=== PATIENT | male | born 1960 | race Caucasian/White ===

== ENCOUNTER → 2024-09-10 | Outpatient (CLI) | payer MEDICARE, SELFPAY ==
--- NOTE | 2024-09-10 15:43 | XR_ITS ---
Examination: Right knee 4 views DATE: AP oblique lateral axial right knee 4 views Exam date and time: September 10 thousand 25 1601 hours INDICATIONS: Right knee pain beginning one month ago. FINDINGS: Moderate to advanced tricompartment osteoarthritis, most severe medial patellofemoral joints Moderate knee effusion No fracture IMPRESSION: Moderate to advanced tricompartment osteoarthritis
== END | disposition home or self-care (01) ==
PROVIDERS: PCP Family Medicine; Referring Provider Internal Medicine; Visit Provider Internal Medicine
DX: M17.11 Unilateral primary osteoarthritis, right knee (principal)
CPT/HCPCS: 73564

== ENCOUNTER → 2024-09-20 | Outpatient (BNVA) | payer MEDICARE, SELFPAY | END | disposition home or self-care (01) | PROVIDERS: PCP Family Medicine; Referring Provider Family Medicine; Visit Provider Urology | DX: N40.1 Benign prostatic hyperplasia with lower urinary tract symptoms (principal); R39.12 Poor urinary stream | CPT/HCPCS: 51741; 51798 ==

== ENCOUNTER → 2025-01-07 | Outpatient (BNVA) | payer MEDICARE, SELFPAY | END | disposition home or self-care (01) | PROVIDERS: PCP Family Medicine; Referring Provider Family Medicine; Visit Provider Urology | DX: N40.1 Benign prostatic hyperplasia with lower urinary tract symptoms (principal); N13.8 Other obstructive and reflux uropathy; R79.89 Other specified abnormal findings of blood chemistry; R97.20 Elevated prostate specific antigen [PSA]; I10 Essential (primary) hypertension; R73.03 Prediabetes; E66.9 Obesity, unspecified; Z68.30 Body mass index [BMI] 30.0-30.9, adult | CPT/HCPCS: 81003; 99212; G0463 ==

== ENCOUNTER → 2025-03-15 | Outpatient (BNVA) | payer MEDICARE, SELFPAY | END | disposition home or self-care (01) | PROVIDERS: PCP Family Medicine; Referring Provider Family Medicine; Visit Provider Physician Assistant | DX: R97.20 Elevated prostate specific antigen [PSA] (principal); M25.852 Other specified joint disorders, left hip | CPT/HCPCS: 99212; G0463 ==

== ENCOUNTER → 2025-04-18 | Outpatient (BNVA) | payer MEDICARE, SELFPAY | END | disposition home or self-care (01) | PROVIDERS: PCP Family Medicine; Referring Provider Family Medicine; Visit Provider Urology | DX: N40.1 Benign prostatic hyperplasia with lower urinary tract symptoms (principal); N13.8 Other obstructive and reflux uropathy; C61 Malignant neoplasm of prostate; E66.9 Obesity, unspecified; Z68.29 Body mass index [BMI] 29.0-29.9, adult | CPT/HCPCS: 81003; 99212; G0463 ==

== ENCOUNTER → 2025-05-16 | Outpatient (CLI) | payer MEDICARE, SELFPAY ==
--- NOTE | 2025-05-16 13:00 | XR_ITS ---
Examination: Bone scan whole body, radioisotope Date and time of exam: May 16, 2025 0856 hours INDICATIONS: Diagnosis malignant neoplasm prostate, mass in the left hip history Technique: Study has been performed with intravenous administration of 23.4 mci 99M technetium MDP. Anterior, posterior whole body images are obtained. Images have been obtained including the lower extremities. Findings: Mild increased uptake involving the manubrium and the medial aspect of the left clavicle Mild uptake at L5 and S1 of the posterior view Asymmetric uptake about the knees IMPRESSION: Positive bone scan but nonspecific Recommend plain films sternum, 5 view lumbar spine series follow-up
== END | disposition home or self-care (01) ==
LOC: SNUC 08:32
PROVIDERS: PCP Internal Medicine; Referring Provider Internal Medicine; Visit Provider Internal Medicine
DX: R93.7 Abnormal findings on diagnostic imaging of other parts of musculoskeletal system (principal); C61 Malignant neoplasm of prostate
CPT/HCPCS: 78306; A9503

== ENCOUNTER → 2025-05-28 | Outpatient (BNVA) | payer MEDICARE, SELFPAY | END | disposition home or self-care (01) | PROVIDERS: PCP Family Medicine; Referring Provider Family Medicine; Visit Provider Urology | DX: N32.89 Other specified disorders of bladder (principal); N40.1 Benign prostatic hyperplasia with lower urinary tract symptoms; N13.8 Other obstructive and reflux uropathy | CPT/HCPCS: 52000; 81003; 96372; A4217; A4649; C1894; J1580; A9270 ==

== ENCOUNTER → 2025-07-10 | Outpatient (CLI) | payer MEDICARE, SELFPAY ==
--- NOTE | 2025-07-10 10:24 | XR_ITS ---
EXAMINATION: PA lateral chest 2 views TECHNIQUE: Upright PA and lateral chest 2 views Date and time: July 10, 2025, 1035 hours INDICATIONS: Preop FINDINGS: Normal heart size Lungs are clear. Mild hyperexpansion. Moderate osteopenia IMPRESSION: Moderate hyperexpansion No pneumonia or pulmonary edema
[2025-07-10 11:11] LABS: Basophils # (Auto) 0.1 Thou/mm3 (0.0-0.2); Basophils % (Auto) 1 % (0-2.5); Eosinophils # (Auto) 0.1 Thou/mm3 (0.0-0.5); Eosinophils % (Auto) 2 % (0-10); Hematocrit 40.2 % (41.0-53.0); Hemoglobin 13.8 g/dL (13.5-16.0); Immature Granulocytes Auto 0.04 Thou/mm3 (0.00-0.00); Lymphocytes # (Auto) 1.8 Thou/mm3 (1.0-4.8); Lymphocytes % (Auto) 30 % (10-50); Mean Corpuscular HGB Conc 34.3 g/dl (31.0-37.0); Mean Corpuscular Hemoglobin 31.1 pg (25.0-35.0); Mean Corpuscular Volume 91 fL (80-100); Monocytes # (Auto) 0.6 Thou/mm3 (0.0-0.8); Monocytes % (Auto) 11 % (0-12); Neutrophils # (Auto) 3.3 Thou/mm3 (1.8-7.7); Neutrophils % (Auto) 55 % (37-80); Nucleated Red Blood Cell # 0.00 Thou/mm3 (0.00-0.00); Nucleated Red Blood Cell % 0 /100 WBC (0); Platelet Count 189 Thou/mm3 (140-440); RDW Standard Deviation 40.7 fL (35.1-43.9); Red Blood Count 4.44 Miln/mm3 (4.50-5.90); White Blood Count 6.0 Thou/mm3 (3.8-10.6)
[2025-07-10 11:22] LABS: INR 1.0 (0.9-1.3); Partial Thromboplastin Time 29.4 Seconds (22.0-36.0); Prothrombin Time 10.3 Seconds (9.0-12.2)
[2025-07-10 11:31] LABS: Alanine Aminotransferase 27 U/L (10-49); Albumin, Serum 4.4 gm/dL (3.4-4.8); Albumin/Globulin Ratio 2.0 (1.2-2.2); Alkaline Phosphatase 58 U/L (46-116); Anion Gap 9 (7-16); Aspartate Amino Transferase 25 U/L (0-34); BUN/Creatinine Ratio 15 Ratio (12-20); Bilirubin,Total 0.9 mg/dL (0.3-1.2); Blood Urea Nitrogen 15 mg/dL (9-23); Calcium 9.5 mg/dL (8.3-10.6); Calcium (Corrected) 9.5 mg/dL (8.5-10.1); Carbon Dioxide 25.0 mMol/L (20.0-31.0); Chloride 108 mMol/L (98-107); Creatinine (Component) 1.0 mg/dL (0.6-1.3); Globulin 2.2 gm/dL (2.3-3.5); Glucose 105 mg/dL (74-106); Osmolality,Calculated 283 (275-295); Potassium 4.2 mMol/L (3.4-5.1); Sodium 142 mMol/L (136-145); Total Protein 6.6 gm/dL (5.7-8.2); eGFR > 60 See Note
== END | disposition home or self-care (01) ==
LOC: CDIM 09:53 → COPL 10:42
PROVIDERS: PCP Internal Medicine; Referring Provider Internal Medicine; Visit Provider Radiology Diagnostic Radiology
DX: J98.4 Other disorders of lung (principal); Z01.818 Encounter for other preprocedural examination; I10 Essential (primary) hypertension; C61 Malignant neoplasm of prostate
CPT/HCPCS: 36415; 71046; 80053; 85025; 85610; 85730

== ENCOUNTER 2025-07-19 19:13 | Emergency (ER) | payer MEDICARE, SELFPAY ==
[2025-07-19 20:11] VITALS: BP 125/72; PULSE 97; RESP 16; TEMP 37.2; O2SAT 98
[2025-07-19 20:42] LABS: Collection Type, Urine Clean Catch
[2025-07-19 20:48] LABS: Amorphous Crystals,Urine Present (Absent); Bacteria,Urine Rare; Bilirubin,Urine Negative (Negative); Blood,Urine 3+ (Negative); Clarity,Urine Turbid (Clear/Hazy); Color,Urine Yellow (Lt Yel-Yel); Culture Indicated,Urine Yes; Glucose, Urine Negative (Negative); Ketones,Urine Negative (Negative); Leukocyte Esterase,Urine Positive (Negative); Nitrite,Urine Negative (Negative); PH,Urine 6.0 (5.0-7.0); Protein,Urine 2+ (Neg - Trace); RBC,Urine 648 /hpf (0-3); Specific Gravity,Urine 1.024 (1.001-1.035); Squamous Epithelial Cell,Urine < 1 /hpf (0-5); Urobilinogen,Urine Negative mg/dL (0.0-1.0); WBC,Urine 12 /hpf (0-5)
--- NOTE | 2025-07-19 20:53 | XR_ITS ---
Examination: CT abdomen and pelvis without contrast. Coronal 3-D reconstructions. Sagittal 2-D reconstructions. Date and time of exam: July 19, 2025, 2102 hours INDICATIONS: Testicular swelling and abdominal pain today, prostatectomy 1 week ago CTDI: vol (mGy): 9.65 DLP: (mGycm): 538 Technique: Axial images of the abdomen have been obtained, 3 mm slice thickness Intravenous contrast material has not been administered. Low dose protocols were performed. One or more of the following dose reduction techniques were used; automated exposure control, adjustment of the mA and/or KV according to patient size, use of iterative reconstruction technique. Findings: Liver is mildly irregular in contour, minimal fluid subcapsular to the liver No gallstones Presumed postoperative change with air density in the anterior and left lateral abdominal wall and flank as well as the right flank Pneumoperitoneum Parapelvic renal cysts No ureteral calculi Normal appendix Mild increased density in the peritoneal fat in the pelvis Urinary Turk catheter in the bladder No prostate tissue No pelvic hematoma Air in the soft tissue also anterior lower pelvis Air in the scrotal sac on the right side and scrotal edema IMPRESSION: Postoperative changes involving the abdominal wall and flank as above Pneumoperitoneum, presumably postoperative Postoperative change in the peritoneal fat in the pelvis but no pelvic hematoma or abscess Air in the scrotal sac on the right side with scrotal edema
--- NOTE | 2025-07-19 20:54 | EDRME_ITS ---
Rapid Medical Screening Exam RME Arrival date/time: 07/19/25 19:13 64M with history of HTN and prostate cancer (prostate removed 1 week ago at [facility]) presents to ED with 1 day of bilateral testicular swelling and pain. Patient received ABX during surgery recovery while inpatient, but no outpatient ABX. Patient has post-op exam on Tuesday. Chief Complaint: Urogenital-Male Time Seen by Provider: 07/19/25 20:57 Vital signs: Vital Signs Temperature 98.9 F 07/19/25 20:11 Pulse Rate 97 07/19/25 20:11 Respiratory Rate 16 07/19/25 20:11 Blood Pressure 125/72 07/19/25 20:11 Pulse Oximetry (%) 98 07/19/25 20:11 Oxygen Delivery Method Room Air 07/19/25 20:11 Exam: Testicular swelling. Turk is draining. Clinical Impression: Postop complication/swelling vs epididymitis vs hematoma vs torsion vs testicular pain
[2025-07-19 23:08] VITALS: BP 119/64; PULSE 83; RESP 16; TEMP 37.2; O2SAT 98
--- NOTE | 2025-07-19 23:21 | EDNOTE_ITS ---
ED Male Genitalurinary RME/HPI General Chief complaint: Urogenital-Male Stated complaint: TESTICLE SWELLING Time Seen by Provider: 07/19/25 20:57 Arrival date/time: 07/19/25 19:13 RME / HPI RME / HPI Narrative: 07/19/25 19:13 64M with history of HTN and prostate cancer (prostate removed 1 week ago at [facility]) presents to ED with 1 day of bilateral testicular swelling and pain. Patient received ABX during surgery recovery while inpatient, but no outpatient ABX. Patient has post-op exam on Tuesday. Dr. Al?s Main ED Evaluation: 64 y/o male with Hx of Prostate CA and recent radical prostatectomy presents to ED c/o scrotal swelling x 1 day and a burning sensation when catheter drains urine x 4 days. Pt had his prostatectomy performed 7 days ago (07/12/2025) by Dr. Alegre at [facility]. Dr. Rai, patient's urologist, was contacted and recommended OTC AZO which the states helped somewhat. Patient was draining approximately 300-400 cc per 2 hours, but has refrained from hydrating since realizing that the burning sensation occurs when urine is produced and drained. Denies testicular and abdominal pain. He is concerned about the scrotal swelling. No fevers, shakes, chills, sweats. No history of diabetes. No other medical complaints Exam: Testicular swelling. Daniels is draining. Impression: Postop complication/swelling vs epididymitis vs hematoma vs torsion vs testicular pain Related Data Home Medications ?Medication ?Instructions ?Recorded ?Confirmed lisinopril 10 mg tablet 10 mg PO QDAY 04/12/2405/28 tamsulosin 0.4 mg capsule 0.4 mg PO QHS 04/12/2405/28 cyclobenzaprine 5 mg tablet 5 mg PO QHS 05/28/2505/28 meloxicam 7.5 mg tablet 7.5 mg PO QDAY 05/28/2505/07 Review of Systems Review of Systems Systems Reviewed: All systems reviewed, normal except as documented Past Medical History Past Medical History GENITOURINARY: Positive Prostate Cancer OTHER HISTORY: Positive Prostate Cancer ED Exam Narrative Physical exam: GENERAL APPEARANCE: alert and oriented x 4, well-developed, well-nourished, no acute distress VITALS: All vitals were reviewed and the pulse ox is 98% on room air, which is normal according to my interpretation. HEENT: Normocephalic, atraumatic; pupils equal, round, reactive to light; EOMI; mucous membranes pink, moist; oropharynx clear NECK: Supple LUNGS: CTABL; no wheezes, no rales, no rhonchi HEART: Regular rate, regular rhythm; normal S1, S2; no murmurs ABDOMEN: Multiple anterior abdominal wall surgical scars, well-healing, no redness, drainage, or swelling. MALE : General scrotal swelling, no TTP. Testes normal, draining indwelling daniels catheter. BACK: no CVA tenderness EXTREMITIES: atraumatic; no edema NEUROLOGIC: awake; alert and oriented x4; cranial nerves II-XII grossly intact; no focal sensory or motor deficits PSYCHIATRIC: appropriate mood and affect SKIN: warm, dry, normal color; no rashes Course Quality Measures none Orders Category Date Time Status CT Screening NOW Care 07/19/25 23:33 Completed IV [Insert IV] NOW Care 07/20/25 00:[address] abdomen pelvis wo con Stat Exams 07/19/25 20:53 Completed Blood Culture (Lab) Stat Lab 07/19/25 23:45 Received CBC Stat Lab 07/19/25 23:45 Completed CMP [Comprehensive Metabolic Panel] Stat Lab 07/19/25 23:45 Completed Procalcitonin Stat Lab 07/19/25 23:45 Completed Sed Rate (ESR) Stat Lab 07/19/25 23:45 Completed Urinalysis, C/S if Indicated Stat Lab 07/19/25 19:32 Completed Urine Culture Stat Lab 07/19/25 19:32 Received Phenazopyridine HCl [Pyridium] Med 07/20/25 00:58 Discontinued 100 mg PO X1 ONE Vital Signs Vital signs: Vital Signs Temperature 98.9 F 07/19/25 20:11 Pulse Rate 97 07/19/25 20:11 Respiratory Rate 16 07/19/25 20:11 Blood Pressure 125/72 07/19/25 20:11 Pulse Oximetry (%) 98 07/19/25 20:11 Oxygen Delivery Method Room Air 07/19/25 20:11 Urogenital - Male MDM Narrative MDM Narrative:: 64 y/o male with Hx of Prostate CA and recent radical prostatectomy presents to ED c/o scrotal swelling x 1 day and a burning sensation when catheter drains urine x 4 days. Pt had his prostatectomy performed 7 days ago (07/12/2025) by Dr. Alegre at [facility]. Dr. Rai, patient's urologist, was contacted and recommended OTC AZO which the states helped somewhat. Patient was draining approximately 300-400 cc per 2 hours, but has refrained from hydrating since realizing that the burning sensation occurs when urine is produced and drained. Denies testicular and abdominal pain. He is concerned about the scrotal swelling. No fevers, shakes, chills, sweats. No history of diabetes. No other medical complaints. Patient's workup shows hematuria but no UTI. The CT showed post operative changes as well as some free scrotal air and some scrotal wall thickening. I called and spoke with the urologist who is on-call for the patient's surgeon (Dr. English). He and I discussed the patient's case in detail. He said that scrotal free air is commonly seen in patients who have had prostatectomy. He states this does not indicate necessity of further workup. Patient has no leukocytosis. I find no evidence of infection. On exam the patient had no scrotal erythema or tenderness to palpation. There is no testicular tenderness to palpation. I spoke with the patient and his and they are happy to be discharged and they will call their surgeon for a follow-up appointment. I gave them strict return instructions and they voiced understanding and agreement Scribe Attestation: I, Gianna Gregorio, am scribing for and in the presence of Dr. Al. Provider Notation: Although this document has been carefully reviewed, there may still be some phonetic and other typographical errors. These errors are purely grammatical due to imperfections in the software program and should not be construed in any way to compromise the substance of the patient's medical care during this visit. Patient data External records reviewed:: [facility] previous records (No prior ED records available for review) Clinical information provided by:: patient and spouse () Social determinants that could affect healthcare access:: none Patient has the following chronic illnesses:: Prostate CA How is presenting disease/condition affected by chronic disease/condition?: exacerbated by Evaluation data The following diagnostics were reviewed and interpreted by me:: lab results and radiology exam(s) Lab and/or radiology exams considered but not ordered:: None Interpretation Summary: RADIOLOGY Abdomen/Pelvis CT: Findings: Liver is mildly irregular in contour, minimal fluid subcapsular to the liver No gallstones Presumed postoperative change with air density in the anterior and left lateral abdominal wall and flank as well as the right flank Pneumoperitoneum Parapelvic renal cysts No ureteral calculi Normal appendix Mild increased density in the peritoneal fat in the pelvis Urinary Daniels catheter in the bladder No prostate tissue No pelvic hematoma Air in the soft tissue also anterior lower pelvis Air in the scrotal sac on the right side and scrotal edema IMPRESSION: Postoperative changes involving the abdominal wall and flank as above Pneumoperitoneum, presumably postoperative Postoperative change in the peritoneal fat in the pelvis but no pelvic hematoma or abscess Air in the scrotal sac on the right side with scrotal edema Medications / Prescriptions Medications or Prescriptions considered but not ordered:: None Medication administrations:: Medication Administration History Discontinued Medications Phenazopyridine HCl (Phenazopyridine Hcl 100 Mg Tablet) 100 mg PO X1 ONE Stop: 07/20/25 00:59 See above if any Consultations Consultation(s) initiated? (list below): Yes Consultation #1 (Physician, Specialty, Details): Dr. English from [facility] made aware of the patient?s HPI, PMHx, lab and/or radiology results. Discussed treatment plan. Will follow recommendations. Time: 00:49 Diagnosis Urogenital Male Differential Diagnosis: urethritis, epididymitis, acute retention of urine, inguinal hernia and other (renal calculi) Most likely diagnosis given after review of the tests above:: See clinical impression below. Admission Indicated Admission indicated?: not indicated Explain why admission is indicated or not indicated:: Patient has no emergent abnormalities in their studies and can be managed on an outpatient basis. Admission Request Was there a request for admission?: No Disposition Plan Disposition Plan: Discharge Discharge Attestation Discharge Attestation: The patient and all family members were given an opportunity to ask questions and understood the discharge instructions. Discharge instructions specifically effects, indications for sooner follow up or return to the emergency department, and the expected course of current diagnosis. Patient condition: Stable Discharge Plan Plan Patient Disposition: HOME (Self Care) Discharge Disposition comment: Stable for discharge home Patient condition on transfer: Stable Prescriptions/Referrals Prescriptions/Med Rec: No Action meloxicam 7.5 mg tablet 7.5 mg PO QDAY cyclobenzaprine 5 mg tablet 5 mg PO QHS tamsulosin 0.4 mg capsule 0.4 mg PO QHS lisinopril 10 mg tablet 10 mg PO QDAY Referrals: [facility] [Provider Group] - In 1 week Problem List Clinical Impression: Postoperative abdominal pain, Hematuria Patient/Caregiver Discharge Instructions Discharge Activity: activity as tolerated Diet Instructions: No restrictions Education Materials: Complementary Care for Pain, Managing Post-Op Pain at Home Additional Instructions: Today you were seen in the emergency department for postoperative pain. The CT scan shows that you have normal changes after surgery such as the 1 you pad. The reason that your scrotum became more swollen is that there is now air in the scrotum. This is not necessarily a problem and there does not seem to be any any evidence of infection or any other postoperative complications at this point You should call your urologist and make a follow-up appointment for sometime in the next week or so. If you worsen in any way you should return to the ER right away and we will help you. Otherwise you should follow-up with your primary care doctor within the next several days Print Language: Upper Sorbian Stand Alone Forms: Mamie Award Info., Patient Portal Info Letter
[2025-07-19 23:58] LABS: Sed Rate (ESR) 30 mm/hr (0-20)
[2025-07-20 00:20] LABS: Basophils # (Auto) 0.1 Thou/mm3 (0.0-0.2); Basophils % (Auto) 1 % (0-2.5); Eosinophils # (Auto) 0.3 Thou/mm3 (0.0-0.5); Eosinophils % (Auto) 4 % (0-10); Hematocrit 36.1 % (41.0-53.0); Hemoglobin 12.1 g/dL (13.5-16.0); Immature Granulocytes Auto 0.12 Thou/mm3 (0.00-0.00); Lymphocytes # (Auto) 1.7 Thou/mm3 (1.0-4.8); Lymphocytes % (Auto) 19 % (10-50); Mean Corpuscular HGB Conc 33.5 g/dl (31.0-37.0); Mean Corpuscular Hemoglobin 31.4 pg (25.0-35.0); Mean Corpuscular Volume 94 fL (80-100); Monocytes # (Auto) 0.8 Thou/mm3 (0.0-0.8); Monocytes % (Auto) 9 % (0-12); Neutrophils # (Auto) 6.0 Thou/mm3 (1.8-7.7); Neutrophils % (Auto) 67 % (37-80); Nucleated Red Blood Cell # 0.00 Thou/mm3 (0.00-0.00); Nucleated Red Blood Cell % 0 /100 WBC (0); Platelet Count 214 Thou/mm3 (140-440); RDW Standard Deviation 43.8 fL (35.1-43.9); Red Blood Count 3.85 Miln/mm3 (4.50-5.90); White Blood Count 8.9 Thou/mm3 (3.8-10.6)
[2025-07-20 00:30] VITALS: BMI 34.0
[2025-07-20 00:33] LABS: Alanine Aminotransferase 25 U/L (10-49); Albumin, Serum 4.0 gm/dL (3.4-4.8); Albumin/Globulin Ratio 1.7 (1.2-2.2); Alkaline Phosphatase 61 U/L (46-116); Anion Gap 7 (7-16); Aspartate Amino Transferase 20 U/L (0-34); BUN/Creatinine Ratio 13 Ratio (12-20); Bilirubin,Total 0.7 mg/dL (0.3-1.2); Blood Urea Nitrogen 13 mg/dL (9-23); Calcium 9.2 mg/dL (8.3-10.6); Calcium (Corrected) 9.2 mg/dL (8.5-10.1); Carbon Dioxide 26.0 mMol/L (20.0-31.0); Chloride 106 mMol/L (98-107); Creatinine (Component) 1.0 mg/dL (0.6-1.3); Estimated Creatinine Clearance 86.5 mL/min (>60); Globulin 2.4 gm/dL (2.3-3.5); Glucose 102 mg/dL (74-106); Osmolality,Calculated 277 (275-295); Potassium 4.4 mMol/L (3.4-5.1); Procalcitonin 0.08 ng/ml (0.0-0.49); Sodium 139 mMol/L (136-145); Total Protein 6.4 gm/dL (5.7-8.2); eGFR > 60 See Note
[2025-07-20 01:14] VITALS: BP 119/64; PULSE 70; RESP 17; TEMP 37.1; O2SAT 98
== END 2025-07-20 01:37 | disposition home or self-care (01) ==
PROVIDERS: Physician Assistant; Emergency Provider Emergency Medicine
DX: G89.18 Other acute postprocedural pain (principal); N50.89 Other specified disorders of the male genital organs; R31.9 Hematuria, unspecified; R10.9 Unspecified abdominal pain; I10 Essential (primary) hypertension; Z90.79 Acquired absence of other genital organ(s)
CPT/HCPCS: 36415; 74176; 80053; 81001; 84145; 85025; 85652; 87040; 87077; 87086; 87186; 99283